=== PATIENT | female | born 1970 | race Caucasian/White ===

== ENCOUNTER 2020-12-27 11:25 | Emergency (ER) | payer BC ==
[~2020-12-27] VITALS: Ht 162.6 cm; Wt 98.2 kg
[2020-12-27 11:33] VITALS: TEMP 98.3
[2020-12-27 12:20] LABS: BASO % 0.6 % (0.0-2.0); EOS # 0.3 (0.0-0.7); EOS % 4.6 % (0-4.0); GRAN # 4.3 (1.4-6.5); GRAN % 62.3 % (42.2-75.2); HEMOGLOBIN 11.4 g/dl (12.5-16.0); LYMPH # 1.7 (1.2-3.4); LYMPH % 24.2 % (20.0-51.0); MEAN CELL VOLUME 93 fl (80.0-100.0); MEAN CORPUSCULAR HEMOGLOBIN 30 pg (27.0-31.0); MEAN CORPUSCULAR HGB CONC 33 g/dl (33.0-37.0); MEAN PLATELET VOLUME 10.4 fl (7.4-10.4); MONO # 0.6 (0.1-0.6); PLATELET COUNT 315 K/mm3 (130-400); RED BLOOD COUNT 3.75 M/mm3 (4.10-5.30); REDCELL DISTRIBUTION WIDTH-CV 13.6 % (11.5-14.5)
[2020-12-27 12:22] LABS: HEMATOCRIT 34.7 % (37.0-47.0)
[2020-12-27 12:27] LABS: INR 1.1 (0.8-3.0); PROTHROMBIN TIME 12.1 SECONDS (9.7-12.8)
[2020-12-27 12:29] LABS: ALANINE AMINOTRANSFERASE 74 U/L (4-34); ALBUMIN 3.8 gm/dL (3.5-5.0); ALKALINE PHOSPHATASE 79 U/L (50-136); ANION GAP 3 mmol/L (7-16); AST,SGOT 85 U/L (15-37); BILIRUBIN,TOTAL 0.5 mg/dL (0.0-1.0); BLOOD UREA NITROGEN 13 mg/dL (7-17); CARBON DIOXIDE 28 mmol/L (22-30); CHLORIDE 104 mmol/L (98-107); CREATININE, serum 0.47 (0.52-1.25); GLUCOSE 113 mg/dL (74-106); POTASSIUM 4.1 mmol/L (3.4-5.0); SODIUM 135 mmol/L (137-145); TOTAL PROTEIN 7.3 gm/dL (6.4-8.2)
[2020-12-27 12:42] LABS: TROPONIN-I < 0.012 ng/mL (0.000-0.035)
[2020-12-27] MEDS ORDERED: LASIX 40MG TABL40 MG PO (13:02)
[2020-12-27] MEDS ORDERED: KLOR-CON SPRIN10 MEQ PO (13:04)
[2020-12-27] MEDS ORDERED: CEPHALEXIN500 M1 PO (13:04)
[2020-12-27] MEDS ORDERED: LASIX 20MG TABL20 MG PO (13:05)
[2020-12-27] MEDS ORDERED: CLEOCIN HCL300 MG PO (13:05)
[2020-12-27] MEDS ORDERED: KADIAN30 MG PO (13:06)
[2020-12-27] MEDS ORDERED: FLEXERIL 1010 MG/TAB PO (13:06)
[2020-12-27] MEDS ORDERED: DAZIDOX10 MG PO (13:06)
[2020-12-27] MEDS ORDERED: NEURONTIN600 MG/TAB PO (13:07)
[2020-12-27] MEDS ORDERED: WELLBUTRIN XL300 M1 PO (13:07)
[2020-12-27] MEDS ORDERED: XANAX 0.5MG0.5 MG PO (13:07)
[2020-12-27] MEDS ORDERED: SINGULAIR 110 MG/TAB PO (13:08)
[2020-12-27] MEDS ORDERED: ENDOMETRIN100 MG VG (13:08)
[2020-12-27] MEDS ORDERED: XARELTO20 MG PO (13:08)
[2020-12-27] MEDS ORDERED: INDERAL 20MG20 MG PO (13:08)
[2020-12-27] MEDS ORDERED: TIROSINT50 MC1 PO (13:09)
[2020-12-27 13:40] VITALS: BP 131/78; PULSE 80
== END 2020-12-27 13:42 | disposition home or self-care (01) ==
LOC: COL.ER 11:25
PROVIDERS: Family Medicine
DX: R60.0 Localized edema (principal); I10 Essential (primary) hypertension; E66.9 Obesity, unspecified; Z86.718 Personal history of other venous thrombosis and embolism; Z79.899 Other long term (current) drug therapy; Z79.01 Long term (current) use of anticoagulants; Z68.37 Body mass index [BMI] 37.0-37.9, adult; Z88.1 Allergy status to other antibiotic agents